=== PATIENT | female | born 1990 | race Caucasian/White ===

== ENCOUNTER 2021-07-30 15:57 | Outpatient (RCR) | payer OTHER, SELFPAY ==
--- NOTE | 2021-07-30 17:41 | PTOPEVAL ---
Thank you for referring Tanja Tate to [facility].? The patient is scheduled to be seen for therapy? ____2 x/week for 12 visits. Please review, sign, date and return this plan of care JERRICA. I agree with and certify that the following plan of care is medically necessary. Referring Physician Date Admitting Provider: Attending Provider: GUS FERRARA Referring Provider: *PT Outpatient Evaluation Start: 07/30/21 16:06 Freq: Status: Active Protocol: Document 07/30/21 16:00 MERNA (Rec: 07/30/21 17:40 MERNA [email or web address]) Therapy Assessment Status Assessment Status Assessment Status Evaluation Evaluation Information Problem Diagnosis s/p right knee menisectomy Onset 07/16/21 Subjective Information Pt. reports she underwent Query Text:As Reported By Patient/ surgery of the right knee on Family 07/16/21. She states that she is doing pretty good. She reports pain has been mild. She states that she has little to no stiffeness in the right knee. 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 Hand Dominance Right Activity of Daily Living Ability Independent Indoor/Home Mobility Independent Community Mobility Independent Stairs Ability Independent Functional Cognition (Planning, Shopping Independent , Taking Medications) Cooking Yes Cleaning Yes Laundry Yes Shopping Yes Driving Yes Pain Assessment Timing of Pain Assessment Timing of Pain Assessment Pre-Treatment Pain Scale Pain Scale Used Numeric (1 - 10) Self Report Pain Assessment Right Knee(s) Reported Pain Level 1 Pain Score Pain Score 1: Self Report Interventions Used Interventions Used By Clinicians Electrical Stimulation, Exercise,Heat Lower Extremity Range of Motion General Lower Extremity Range of Motion Gross Lower Extremity Range of Motion -right knee AROM 0-137 degrees Comments Lower Extremity Muscle Strength Testing General Lower Extremity Strength Gross Lower Extremity Strength -bilateral hip flexion 5/5 -bilateral hip abduction 4/5 -bilateral hip extension 4/5
== END 2021-09-05 10:38 | disposition home or self-care (01) ==
LOC: CHSPT 15:57
DX: M25.561 Pain in right knee (principal)
CPT/HCPCS: 97014; 97110; 97161; G0283